=== PATIENT | female | born 1990 | race Caucasian/White ===

== ENCOUNTER 2023-04-19 09:35 | Emergency (ER) | payer BC, SELFPAY ==
[2023-04-19 09:35] VITALS: BMI 26.4
[2023-04-19 09:38] VITALS: BP 135/93
[2023-04-19 10:20] LABS: % Basophils 0.5 % (0-2); % Eosinophils 0.8 % (0-6); % Immature Granulocytes 0.6 % (0-0.5); % Lymphocytes 8.9 % (20.5-51.1); % Monocytes 5.7 % (1.7-9.3); % Neutrophils 83.5 % (42.2-75.2); Absolute Basophils 0.1 10^3/uL (0-0.2); Absolute Eosinophils 0.1 10^3/uL (0-0.7); Absolute Immature Granulocytes 0.1 10^3/uL (0-0.05); Absolute Lymphocytes 1.1 10^3/uL (1.2-3.4); Absolute Monocytes 0.7 10^3/uL (0.1-0.6); Absolute Neutrophils 9.9 10^3/uL (1.4-6.5); Hematocrit 37.5 % (37.0-47.0); Hemoglobin 13.4 g/dL (12.0-16.0); Mean Corp Hgb Conc. 35.7 g/dL (33.0-37.0); Mean Corpuscular Hgb 30.2 pg (27.0-31.0); Mean Corpuscular Volume 84.5 fL (81.0-99.0); Mean Platelet Volume 9.5 fL (7.4-10.4); Nucleated Red Blood Cells % 0 %; Platelet Count 279 10^3/uL (130-400); Red Blood Cell Count 4.44 10^6/uL (4.20-5.40); Red Cell Dist. Width 12.7 % (11.5-14.5); White Blood Cell Count 11.8 10^3/uL (4.8-10.8)
--- NOTE | 2023-04-19 10:22 | ED.GENMED ---
History of Present Illness
General
Chief Complaint: Dehydration Symptoms
Time Seen by Provider: 04/19/23 09:57
Travel History
Have you had any contact with someone who has COVID-19?: No
Do you have any symptoms of coronavirus? Fever > 100 degrees, chills, cough, shortness of breath, sore throat, loss of taste or smell, muscle aches, or headache?: No
History of Present Illness
History of Present Illness:
32-year-old female, G 2P1 currently 16 weeks gestational age presents to the emergency department for evaluation of intractable nausea and vomiting associated with intermittent headaches. Patient does have a history of migraines, had a migraine
earlier this week that abated with Fioricet however nausea and vomiting has persisted. She has not taken any medications today. Is feeling some degree of movements, denies any vaginal bleeding or discharge. No abdominal pain.
Past History
Past History
ED Past Medical History: None
ED Past Surgical History: None
Social History
Tobacco: Non-smoker
Alcohol: None
Drug: None
Living: with family
Review of Systems
Review of Systems
Allergies reviewed?: Yes
All Other Systems: ROS reviewed and negative except as documented in HPI and ROS
Phy Exam
Physical Exam
Physical Exam:
GEN: Well appearing, NAD, WDWN
HEENT: Oral mucosa moist, no scleral icterus
Cardiac: Regular rate
Lung: No respiratory distress, no tachypnea
Abdomen: Soft, nontender
MSK: No gross deformity or injuries
Skin: Good color, no pallor or jaundice, no rashes
Neuro: AO x3, moves all extremities freely
Psych: Calm, cooperative
Course
Orders/Labs/Results
Orders:
Orders
04/19/23 10:02
Complete Blood Count/With Diff Urgent
Comprehensive Metabolic Panel Urgent
04/19/23 10:15
Acetaminophen 1000MG/100Ml [Ofirmev] 1,000 mg in 100 ml IV ONCE
Acetaminophen IV Indication:: ED Narcotic Naive Pt-ONCE
Metoclopramide [Reglan] 10 mg IV NOW STA
04/19/23 10:17
Dextrose 5%/0.9%Sodchl 500 ml [D5/0.9% Sodium Chloride] 250 ml IV 500 mls/hr
04/19/23 12:16
Urinalysis Reflex To Culture Urgent
Date Specimen was Collected: 04/19/23
Time Specimen was Collected: 12:14
Urine Microscopic Reflex Cult Urgent
Urine Culture Urgent
YAIR Source: U
Specimen Description:
Date Specimen was Collected: 04/19/23
Time Specimen was Collected: 12:14
Comment: Add on per Wilmer Rodas
04/19/23 13:07
Add On - Microbiology Urgent
Tests Added?: urine culture
Abnormal Lab Results
04/19/23 04/19/23
10:02 12:16
WBC 11.8 H 10^3/uL
(4.8-10.8)
Abs Immat Gran (auto) 0.1 H 10^3/uL
(0-0.05)
Absolute Neuts (auto) 9.9 H 10^3/uL
(1.4-6.5)
Absolute Lymphs (auto) 1.1 L 10^3/uL
(1.2-3.4)
Absolute Monos (auto) 0.7 H 10^3/uL
(0.1-0.6)
Immature Gran % 0.6 H %
(0-0.5)
Neutrophils % 83.5 H %
(42.2-75.2)
Lymphocytes % 8.9 L %
(20.5-51.1)
Creatinine 0.5 L mg/dL
(0.6-1.0)
Glucose 100 H mg/dl
(70-99)
Total Bilirubin 1.4 H mg/dl
(0.2-1.3)
Urine Ketones 3+ A
(Negative)
Ur Occult Blood Reflex Trace A
(Negative)
Urine Bilirubin 1+ A
(Negative)
Urine Urobilinogen 3+ A
(Neg - 1+)
Leukocyte Esterase Rfl Trace A
(Negative)
Urine RBC 3-6 A /HPF
(0-2)
Urine Bacteria (Reflex) Few A
(Negative)
04/19/23 10:02
04/19/23 10:02
Vital Signs
Initial and Last Documented VS:
Initial Vital Signs
Temp Pulse Resp BP Pulse Ox
98.8 F 111 18 135/93 97
04/19/23 09:38 04/19/23 09:38 04/19/23 09:38 04/19/23 09:38 04/19/23 09:38
Last Documented Vital Signs
Temp Pulse Resp BP Pulse Ox
98.8 F 79 20 103/75 98
04/19/23 09:38 04/19/23 13:05 04/19/23 13:05 04/19/23 13:05 04/19/23 13:05
MDM/Problems Addressed
MDM/Problems Addressed:
Patient is good heart activity by ultrasound performed myself. This was a limited ultrasound utilized to assess for heart tones and activity only. Labs are reassuring, she was given IV fluid resuscitation including dextrose containing
fluid with significant improvement in symptoms. She is not hypertensive and has no proteinuria concerning for preeclampsia, she is also quite early for this to develop. Will prescribe small amount of Reglan for supportive relief
Comment
Comment:
Bedside limited obstetric ultrasound performed by myself, performed for evaluation of heart tones only. heart rate noted at a rate of 140, active movement noted
*Critical Care Note
Total Time (30-74mins, 75-104mins- exclusive of procedures): Not Applicable
ED Attending Note
-
Portions of this chart may have been created with voice recognition software.� Occasional wrong word or��sound alike� substitutions may have occurred due to the inherent limitations of voice recognition software.
Discharge Plan
Departure
Patient Disposition: Home (Routine Discharge)
Date of Disposition: 04/19/23
Time of Disposition: 13:07
Patient with high blood pressure during this ER visit?: No
Discharge Problem:
Nausea and vomiting
Instructions: Nausea and Vomiting, Adult (DC)
Prescriptions:
New
metoclopramide HCl [Reglan] 10 mg tablet
10 mg PO Q8HPRN PRN (Reason: nausea and vomiting) Qty: 9 0RF
No Action
[id number]-cod [Fioricet with Codeine] 1 EACH capsule
1 ea PO PRN PRN (Reason: migraines)
PNV cmb#95-ferrous fumarate-FA [] 1 EACH tablet
1 ea PO DAILY
ibuprofen 600 MG tablet
600 mg PO Q4HPRN PRN (Reason: moderate pain/cramps) 0RF
Referrals:
Too Ovalle PA [Family Provider] -
Interventions
Interventions:
*Risk Screen - Suicide Last Done: 04/19/23 10:27
*General Assessment Last Done: 04/19/23 09:38
*Neglect/Abuse Screening Last Done: 04/19/23 10:27
*ED COVID-19 Vaccine History Last Done: 04/19/23 09:38
*Nursing Disposition Last Done: 04/19/23 13:34
ED- Cardiac Assessment Last Done: 04/19/23 11:05
ED- Neurological Assessment Last Done: 04/19/23 11:05
ED- Pulmonary Assessment Last Done: 04/19/23 11:05
Discharge Date and Time
Discharge Date/Time: 04/19/23 13:35
[2023-04-19] MEDS: REGLAN 10 MG IV (10:25)
[2023-04-19] MEDS: OFIRMEV 100 IV (10:26)
[2023-04-19] MEDS: D5/0.9% SODIUM CHLORIDE 250 IV (10:26)
[2023-04-19 10:35] LABS: ALT (SGPT) 25 U/L (0-35); AST (SGOT) 26 U/L (14-36); Albumin 3.6 g/dl (3.5-5.0); Alkaline Phosphatase 66 U/L (38-126); Blood Urea Nitrogen 8 mg/dl (7-17); Calcium 9.2 mg/dl (8.4-10.2); Carbon Dioxide 22 mmol/L (22-30); Chloride 103 mmol/L (98-107); Estimated Creatinine Clearance > 125 ml/min; Glucose 100 mg/dl (70-99); Potassium 3.5 mmol/L (3.5-5.1); Sodium 135 mmol/L (135-145); Total Bilirubin 1.4 mg/dl (0.2-1.3); Total Protein 6.9 g/dl (6.3-8.2); eGFR > 60.00
[2023-04-19 12:31] LABS: Urine Albumin Trace (Neg - Trace); Urine Bilirubin 1+ (Negative); Urine Character Clear (Clear); Urine Color Brown; Urine Glucose Negative (Negative); Urine Ketone 3+ (Negative); Urine Leukocyte Trace (Negative); Urine Nitrite Negative (Negative); Urine Occult Blood Trace (Negative); Urine Specific Gravity 1.015 (<1.030); Urine Urobilinogen 3+ (Neg - 1+)
[2023-04-19 13:01] LABS: Urine Bacteria Few (Negative)
[2023-04-19 13:05] VITALS: BP 103/75
== END 2023-04-19 13:35 | disposition home or self-care (01) ==
LOC: EMR 09:35
PROVIDERS: Physician Assistant; EMERGENCY PHYSICIAN Emergency Medicine; FAMILY PHYSICIAN Internal Medicine
DX: O21.9 Vomiting of pregnancy, unspecified (principal); Z3A.16 16 weeks gestation of pregnancy
CPT/HCPCS: 99284; 96374; 96375; 96361; 80053; 81003; 81015; 85025; 87077; 87086; 87147

== ENCOUNTER → 2023-09-16 06:54 | Outpatient (REF) | payer BC, SELFPAY | LOC: PNTC 06:54 | PROVIDERS: ATTENDING PHYSICIAN Obstetrics & Gynecology | DX: O36.60X0 Maternal care for excessive fetal growth, unspecified trimester, not applicable or unspecified (principal) | CPT/HCPCS: 76816 ==

== ENCOUNTER 2023-09-24 01:36 | Observation (INO) | payer BC, SELFPAY ==
[2023-09-24 01:58] VITALS: BMI 31.2
[2023-09-24 02:01] VITALS: BP 131/82
== END 2023-09-24 04:13 | disposition home or self-care (01) ==
LOC: LDRP 01:36
PROVIDERS: ADMITTING PHYSICIAN Obstetrics & Gynecology; FAMILY PHYSICIAN Internal Medicine
DX: O47.1 False labor at or after 37 completed weeks of gestation (principal); Z3A.39 39 weeks gestation of pregnancy; O99.820 Streptococcus B carrier state complicating pregnancy
CPT/HCPCS: 36415; 86850; 86900; 86901; G0378

== ENCOUNTER 2023-09-25 04:31 | Inpatient (IN) | payer BC, SELFPAY ==
[2023-09-25 04:43] VITALS: BP 136/74; BMI 31.2
[2023-09-25 05:33] LABS: % Basophils 0.3 % (0-2); % Eosinophils 0.4 % (0-6); % Immature Granulocytes 1.6 % (0-0.5); % Lymphocytes 12.4 % (20.5-51.1); % Monocytes 6.1 % (1.7-9.3); % Neutrophils 79.2 % (42.2-75.2); Absolute Eosinophils 0.1 10^3/uL (0-0.7); Absolute Immature Granulocytes 0.2 10^3/uL (0-0.05); Absolute Lymphocytes 1.4 10^3/uL (1.2-3.4); Absolute Monocytes 0.7 10^3/uL (0.1-0.6); Absolute Neutrophils 8.9 10^3/uL (1.4-6.5); Hematocrit 30.5 % (37.0-47.0); Hemoglobin 9.6 g/dL (12.0-16.0); Mean Corp Hgb Conc. 31.5 g/dL (33.0-37.0); Mean Corpuscular Hgb 23.4 pg (27.0-31.0); Mean Corpuscular Volume 74.4 fL (81.0-99.0); Mean Platelet Volume 9.5 fL (7.4-10.4); Nucleated Red Blood Cells % 0 %; Platelet Count 288 10^3/uL (130-400); Red Cell Dist. Width 16.3 % (11.5-14.5); White Blood Cell Count 11.3 10^3/uL (4.8-10.8)
[2023-09-25] MEDS: PENICILLIN 110 UNITS IV (05:35)
[2023-09-25] MEDS: LR 1000 IV ×3 (05:35→10:39)
[2023-09-25] MEDS: FENTANYL/BUPIVACAINE 100 EPIDURAL (06:42)
[2023-09-25] MEDS: SUBLIMAZE 100 MCG EPIDURAL (06:56)
[2023-09-25] MEDS: PENICILLIN 55 UNITS IV (09:14)
[2023-09-25] MEDS: PITOCIN 30 UNITS/NSS 500 ML IV (15:00)
[2023-09-25] MEDS: PENICILLIN IV (15:04)
[2023-09-25] MEDS: MOTRIN 600 MG PO ×2 (15:20→21:19)
[2023-09-26] MEDS: MOTRIN 600 MG PO ×4 (03:53→22:32)
[2023-09-26 04:35] LABS: Hematocrit 26.2 % (37.0-47.0); Hemoglobin 8.4 g/dL (12.0-16.0)
[2023-09-26] MEDS: SENOKOT-S 1 TABLET PO (09:44)
[2023-09-26] MEDS: PRENATAL PLUS 1 TABLET PO (09:45)
[2023-09-26] MEDS: FEOSOL 325 MG PO ×2 (09:45→21:08)
[2023-09-27] MEDS: FEOSOL 325 MG PO (08:15)
[2023-09-27] MEDS: PRENATAL PLUS 1 TABLET PO (08:15)
[2023-09-27] MEDS: MOTRIN 600 MG PO (08:16)
[2023-09-27] MEDS: SENOKOT-S 1 TABLET PO (08:16)
[2023-09-27 12:09] LABS: Syphilis/T. pallidum Ab Reflex Negative (Negative)
== END 2023-09-27 12:16 | disposition home or self-care (01) | DRG 807 ==
LOC: LDRP 04:31
PROVIDERS: Obstetrics & Gynecology; ADMITTING PHYSICIAN Obstetrics & Gynecology
PROC: 10E0XZZ Delivery of Products of Conception, External Approach (ICD-10-PCS; 2023-09-25)
PROC: 10907ZC Drainage of Amniotic Fluid, Therapeutic from Products of Conception, Via Natural or Artificial Opening (ICD-10-PCS; 2023-09-25)
PROC: 0UQMXZZ Repair Vulva, External Approach (ICD-10-PCS; 2023-09-25)
PROC: 0W8NXZZ Division of Female Perineum, External Approach (ICD-10-PCS; 2023-09-25)
DX: O99.824 Streptococcus B carrier state complicating childbirth (principal); Z37.0 Single live birth; O69.81X0 Labor and delivery complicated by cord around neck, without compression, not applicable or unspecified; O71.82 Other specified trauma to perineum and vulva; Z3A.39 39 weeks gestation of pregnancy
CPT/HCPCS: 59025; 85014; 85018; 85025; 86780; 86850; 86900; 86901